=== PATIENT | male | born 1970 | race American Indian/Alaskan Native ===

== ENCOUNTER 2017-09-19 06:57 | Emergency (ER) | payer MEDICAID ==
[2017-09-19 07:23] VITALS: TEMP 99.2; BMI 25.8
[2017-09-19 07:53] VITALS: PULSE 72; O2SAT 100
--- NOTE | 2017-09-19 07:53 | ED PDOC ---
HPI: General Adult Time Seen by Provider: 09/19/17 07:06 Chief Complaint (Nursing): Chest Pain History Per: Patient History/Exam Limitations: no limitations Additional Complaint(s): Titus is a 47 year old male, with a history of heroin use, who presents to the emergency department via EMS complaining of diarrhea, chest pressure and shortness of breath. Patient states he is withdrawing from heroin. Patient has hallucinations and suicidal thoughts, which is part of withdrawal syndrome. chest pressure, chills and diarrhea. Patient states heroin use was 2 days ago. Patient is withdrawing from heroin. Patient states he has underlining schizophrenia and has medications for it, but stop taking for 2 to 3 days. PMD: No Family Provider Past Medical History Reviewed: Historical Data, Nursing Documentation, Vital Signs Vital Signs: Last Vital Signs Temp 99.2 F 09/19/17 07:16 Pulse 72 09/19/17 07:58 Resp 13 09/19/17 07:36 BP 113/75 09/19/17 07:36 Pulse Ox 100 09/19/17 07:58 - Medical History PMH: Asthma, Depression, Schizophrenia Denies: Alzheimer's Disease, Diabetes, Hepatitis, HIV, HTN, Chronic Kidney Disease, Seizures, Sexually Transmitted Disease Other PMH: Neck Fracture - Surgical History Surgical History: No Surg Hx - Family History Family History: States: Unknown Family Hx - Social History Drugs: Other (Heroin) - Immunization History Hx Tetanus Toxoid Vaccination: No Hx Influenza Vaccination: Yes Hx Pneumococcal Vaccination: No - Home Medications Home Medications: Ambulatory Orders Medication Instructions Recorded Escitalopram [Lexapro] 20 mg PO DAILY #30 tab 08/07/17 Olanzapine [Zyprexa] 15 mg PO HS #30 tablet 08/07/17 Benztropine [Benztropine Mesylate] 1 mg PO HS #30 tab 09/07/17 Escitalopram [Lexapro] 10 mg PO DAILY #30 tab 09/07/17 Gabapentin [Neurontin] 300 mg PO BID #60 cap 09/07/17 OLANZapine [Zyprexa] 15 mg PO HS #30 tab 09/07/17 Benztropine [Benztropine Mesylate] 10 mg PO DAILY #15 tab 09/19/17 Olanzapine [Zyprexa] 15 mg PO DAILY #15 tablet 09/19/17 Sertraline [Zoloft] 20 mg PO DAILY #15 tab 09/19/17 - Allergies Allergies/Adverse Reactions: Allergies Allergy/AdvReac Type Severity Reaction Status Date / Time ibuprofen [From Motrin] Allergy RASH Verified 09/02/17 14:27 quetiapine [From Seroquel] Allergy DIZZINESS Verified 09/02/17 14:27 trazodone Allergy SWELLING Verified 09/02/17 14:27 Physical Exam - Reviewed Nursing Documentation Reviewed: Yes Vital Signs Reviewed: Yes - Physical Exam Appears: Positive for: No Acute Distress Head Exam: Positive for: NORMOCEPHALIC Skin: Negative for: Rash ENT: Positive for: Other (C-colar from neck fracture noted) Cardiovascular/Chest: Positive for: Regular Rate, Rhythm (S1 and S2) Respiratory: Positive for: Normal Breath Sounds. Negative for: Rales, Wheezing Gastrointestinal/Abdominal: Positive for: Normal Exam, Soft. Negative for: Tenderness Extremity: Positive for: Normal ROM (Full). Negative for: Deformity Neurologic/Psych: Positive for: Alert, Oriented - Laboratory Results Result Diagrams: 09/19/17 07:49 09/19/17 07:49 - ECG ECG Rhythm: Positive for: Sinus Rhythm Rate: 72 O2 Sat by Pulse Oximetry: 100 (RA) Pulse Ox Interpretation: Normal Medical Decision Making Medical Decision Making: Time: 07:23 Impression: Chest Pain, Schizophrenia non-complaint with medications. Patient has history of substance of abuse. Plan: - EKG - Alcohol Serum - BMP - Drug Screen, Urine - Troponin I - CBC - Chest X-Ray Scribe Attestation: Documented by Abdirashid Valentine, acting as a scribe for Mila Melvin MD Provider Scribe Attestation: All medical record entries made by the Scribe were at my direction and personally dictated by me. I have reviewed the chart and agree that the record accurately reflects my personal performance of the history, physical exam, medical decision making, and the department course for this patient. I have also personally directed, reviewed, and agree with the discharge instructions and disposition. 9.45a - patient seen by crisis and per Dr. Cai does not meet criteria for admission. Patient has stable VS since arrival. He agrees to take rx for his meds until his visit in the clinic. Disposition - Clinical Impression Clinical Impression: Substance abuse, Schizophrenia - Patient ED Disposition Is Patient to be Admitted: No Doctor Will See Patient In The: Office Counseled Patient/Family Regarding: Diagnosis, Need For Followup - Disposition Referrals: [facility] [Outside] Disposition: Routine/Home Disposition Time: 09:56 Condition: STABLE Prescriptions: Benztropine [Benztropine Mesylate] 10 mg PO DAILY #15 tab Olanzapine [Zyprexa] 15 mg PO DAILY #15 tablet Sertraline [Zoloft] 20 mg PO DAILY #15 tab Instructions: Polysubstance Abuse (ED) Forms: [employer] ([place]) - POA Present On Arrival: Falls Or Trauma
[2017-09-19 07:58] LABS: BASO % 0.8 % (0.0-2.0); EOS % 0.5 % (0.0-4.0); HEMOGLOBIN 10.1 g/dL (12.0-18.0); LYMPH # 1.2 K/uL (1.0-4.3); LYMPH % 18.4 % (20.0-40.0); MEAN CELL VOLUME 85.7 fl (80.0-94.0); MEAN CORPUSCULAR HEMOGLOBIN 27.2 pg (27.0-31.0); MEAN CORPUSCULAR HGB CONC 31.8 g/dL (33.0-37.0); MEAN PLATELET VOLUME 7.5 fl (7.2-11.7); MONO # 0.4 K/uL (0.0-0.8); MONO % 6.6 % (0.0-10.0); NEUT # 4.8 K/uL (1.8-7.0); NEUT % 73.7 % (50.0-75.0); RBC 3.72 Mil/uL (4.40-5.90); RED CELL DISTRIBUTION WIDTH 15.2 % (11.5-14.5); WHITE BLOOD COUNT 6.5 K/uL (4.8-10.8)
[2017-09-19 08:07] LABS: BLOOD UREA NITROGEN 7 mg/dl (9-20); CALCIUM 8.8 mg/dL (8.4-10.2); GFR AFRICAN-AMERICAN > 60; GFR NON-AFRICAN AMERICAN > 60
--- NOTE | 2017-09-19 09:33 | RAD ---
PROCEDURE: CHEST RADIOGRAPH, 1 VIEW HISTORY: chest pressure, substance abuse COMPARISON: None available. FINDINGS: LUNGS: Clear. PLEURA: No pneumothorax or pleural fluid seen. CARDIOVASCULAR: Normal. OSSEOUS STRUCTURES: Cervical spine hardware fusion press VISUALIZED UPPER ABDOMEN: Normal. OTHER FINDINGS: None. IMPRESSION: No active disease.
[2017-09-19 09:58] VITALS: BP 119/85; RESP 15
[2017-09-19 10:18] LABS: BARBITURATES, UR NEGATIVE (NEGATIVE); BENZODIAZEPINES, UR NEGATIVE (NEGATIVE); PHENCYCLIDINE, UR NEGATIVE (NEGATIVE)
[2017-09-19 10:19] LABS: OPIATES, UR POSITIVE (NEGATIVE)
--- NOTE | 2017-09-20 08:43 | CARD ---
APPROVED REPORT EKG Measurement Heart [id number] <Conclusion> Normal sinus rhythm Normal ECG
== END 2017-09-19 09:59 | disposition home or self-care (01) ==
LOC: H.ER 06:57
DX: F11.10 Opioid abuse, uncomplicated (principal); F20.9 Schizophrenia, unspecified; F32.9 Major depressive disorder, single episode, unspecified; R45.851 Suicidal ideations; Z88.6 Allergy status to analgesic agent; J45.909 Unspecified asthma, uncomplicated

== ENCOUNTER 2017-10-26 19:14 | Emergency (ER) | payer MEDICAID ==
[2017-10-26 19:14] VITALS: BMI 25.8
[2017-10-26 19:24] VITALS: BP 125/85; PULSE 95; RESP 20; O2SAT 97
--- NOTE | 2017-10-26 22:08 | ED PDOC ---
HPI: Psych/Substance Abuse Time Seen by Provider: 10/26/17 19:24 Chief Complaint (Nursing): Substance Abuse Chief Complaint (Provider): Substance Abuse History/Exam Limitations: clinical condition Additional Complaint(s): 47 year old male presents to the emergency department via EMS after he was found around the [place] with [place]. Patient denies substance use however obtunded and noted to have pinpoint pupils. Patient is easily arousable. Past Medical History Reviewed: Historical Data, Nursing Documentation, Vital Signs Vital Signs: Last Vital Signs Temp 100.5 F H 10/26/17 19:20 Pulse 95 H 10/26/17 19:20 Resp 20 10/26/17 19:20 BP 125/85 10/26/17 19:20 Pulse Ox 97 10/26/17 19:20 - Medical History PMH: Asthma, Depression, Schizophrenia Denies: HIV, HTN, Chronic Kidney Disease, Seizures, Sexually Transmitted Disease - Family History Family History: States: Unknown Family Hx - Immunization History Hx Tetanus Toxoid Vaccination: No Hx Influenza Vaccination: Yes Hx Pneumococcal Vaccination: No - Home Medications Home Medications: Ambulatory Orders Medication Instructions Recorded Escitalopram [Lexapro] 20 mg PO DAILY #30 tab 08/07/17 Olanzapine [Zyprexa] 15 mg PO HS #30 tablet 08/07/17 Gabapentin [Neurontin] 300 mg PO BID #60 cap 09/07/17 Sertraline [Zoloft] 20 mg PO DAILY #15 tab 09/19/17 - Allergies Allergies/Adverse Reactions: Allergies Allergy/AdvReac Type Severity Reaction Status Date / Time ibuprofen [From Motrin] Allergy RASH Verified 09/02/17 14:27 quetiapine [From Seroquel] Allergy DIZZINESS Verified 09/02/17 14:27 trazodone Allergy SWELLING Verified 09/02/17 14:27 Review of Systems Review Of Systems: ROS cannot be obtained secondary to pt's inabilty to answer questions. Physical Exam - Reviewed Nursing Documentation Reviewed: Yes Vital Signs Reviewed: Yes - Physical Exam Appears: Positive for: No Acute Distress Head Exam: Positive for: NORMAL INSPECTION Skin: Positive for: Normal Color, Warm, Dry Eye Exam: Positive for: Other (Pinpoint pupils) Cardiovascular/Chest: Positive for: Regular Rate, Rhythm. Negative for: Murmur Respiratory: Positive for: Normal Breath Sounds. Negative for: Accessory Muscle Use, Respiratory Distress Gastrointestinal/Abdominal: Positive for: Normal Exam, Soft. Negative for: Tenderness Extremity: Positive for: Normal ROM. Negative for: Pedal Edema Neurologic/Psych: Positive for: Other (Obtunded and arousable). Negative for: Alert - ECG O2 Sat by Pulse Oximetry: 97 (RA) Pulse Ox Interpretation: Normal Medical Decision Making Medical Decision Making: Time: 1928 Initial Impression: 47 year old male with signs and symptoms of opiate abuse Initial Plan: --Drug Screen, urine --Crisis Evaluation As Ordered --Reevaluation Scribe Attestation: Documented by Adriana Alfaro, acting as a scribe for Baudilio Ge MD. Provider Scribe Attestation: All medical record entries made by the Scribe were at my direction and personally dictated by me. I have reviewed the chart and agree that the record accurately reflects my personal performance of the history, physical exam, medical decision making, and the department course for this patient. I have also personally directed, reviewed, and agree with the discharge instructions and disposition. Disposition - Clinical Impression Clinical Impression: Opiate abuse, episodic - Disposition Disposition: Routine/Home Disposition Time: 06:00 Condition: STABLE Instructions: Opioid Use Disorder Forms: [employer] ([place])
[2017-10-27 06:22] VITALS: TEMP 98.9
== END 2017-10-27 06:51 | disposition home or self-care (01) ==
LOC: H.ER 19:14
DX: F11.10 Opioid abuse, uncomplicated (principal)